=== PATIENT | female | born 1945 | race Caucasian/White ===

== ENCOUNTER 2017-12-08 13:56 | Emergency (ER) | payer OTHER ==
[~2017-12-08] VITALS: Ht 162.6 cm; Wt 82.6 kg
[~2017-12-08 13:56] MED LIST: ANASTROZOLE1 MG; LEVAQUIN500 MG PO; PYRIDIUM200 MG PO
[2017-12-08] MEDS ORDERED: ANASTROZOLE1 MG PO (14:05)
== END 2017-12-08 21:12 | disposition home or self-care (01) ==
LOC: ER 13:56
DX: K80.80 Other cholelithiasis without obstruction (principal); R10.11 Right upper quadrant pain